=== PATIENT | female | born 2000 | race Caucasian/White ===

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

== ENCOUNTER → 2022-02-23 | Outpatient (REF) | payer BC ==
[2022-02-23 12:04] LABS: APPEARANCE, URINE MANUAL CLOUDY (CLEAR); COLOR, URINE MANUAL YELLOW (YELLOW)
[2022-02-23 12:15] LABS: BILIRUBIN, URINE MANUAL NEGATIVE (NEGATIVE); BLOOD URINE MANUAL POSITIVE (NEGATIVE); GLUCOSE, URINE (UA) MANUAL NEGATIVE (NEGATIVE); KETONE, URINE MANUAL NEGATIVE (NEGATIVE); LEUKOCYTE ESTERASE, URINE MAN POSITIVE (NEGATIVE); NITRITE, URINE MANUAL POSITIVE (NEGATIVE); PROTEIN, URINE MANUAL 1+ mg/dL (NEGATIVE); UROBILINOGEN, URINE MANUAL NORMAL (NORMAL)
[2022-02-23 12:47] LABS: BACTERIA, URINE LARGE AMOUNT; HYALINE CAST, URINE NONE SEEN /lpf (0-1); SQUAMOUS EPITHELIAL CELL URINE SMALL AMOUNT /hpf (SMALL AMT); WBC, URINE TNTC /hpf (0-3)
== END ==
LOC: M LAB REF 11:27
PROVIDERS: ATTEND Physician Assistant
DX: N39.0 Urinary tract infection, site not specified (principal)

== ENCOUNTER 2023-08-14 20:56 | Emergency (ER) | payer BC ==
[~2023-08-14] VITALS: Ht 167.6 cm; Wt 51.8 kg
[2023-08-15 00:06] VITALS: BP 110/78; TEMP 98.8; O2SAT 98
== END 2023-08-15 00:08 | disposition home or self-care (01) ==
LOC: M ED 20:56
DX: N93.9 Abnormal uterine and vaginal bleeding, unspecified (principal)

== ENCOUNTER → 2025-04-28 | Outpatient (RCR) ==
[~2025-04-28] MED LIST: HYDR-643 PO; ONDA-282 PO
== END ==
LOC: M EMPSKH 04-12 10:13
PROVIDERS: ATTEND Family Medicine
DX: Z20.828 Contact with and (suspected) exposure to other viral communicable diseases (principal)

== ENCOUNTER 2025-05-07 01:49 | Emergency (ER) | payer BC ==
[~2025-05-07] VITALS: Ht 160 cm; Wt 59.1 kg
[2025-05-07] MEDS: NS (Normal Saline) 0.9% 1,000 ML IV ONE (02:19)
[2025-05-07] MEDS: ONDANSETRON 4MG/2ML VIAL IV ONE (02:19)
[2025-05-07 02:46] LABS: BASO # 0.1 10^3/uL (0.0-0.2); BASO % 0.5 % (0.0-1.0); EOS # 0.0 10^3/uL (0.0-0.5); EOS % 0.4 % (0.0-3.0); LYMPH # 3.7 10^3/uL (1.5-5.0); LYMPH % 38.3 % (24.0-44.0); MONO # 0.4 10^3/uL (0.0-0.8); MONO % 4.5 % (2.0-8.0); NEUTROPHILS # 5.3 10^3/uL (1.5-8.5); NEUTROPHILS % 56.0 % (36.0-66.0); PLATELET COUNT, AUTOMATED 338 10^3/uL (150-450)
[2025-05-07 02:48] LABS: CALCIUM LEVEL 8.9 MG/DL (8.5-10.1); CARBON DIOXIDE LEVEL 23 MMOL/L (20-31); CHLORIDE LEVEL 108 MMOL/L (98-107); CREATININE FOR GFR 0.52 MG/DL (0.55-1.30); GLOMERULAR FILTRATION RATE > 90.0 (>60); HCG, SERUM QUALITATIVE NEGATIVE (NEGATIVE); MAGNESIUM LEVEL 2.0 MG/DL (1.8-2.4); POTASSIUM SERUM 3.9 MMOL/L (3.5-5.1); SODIUM LEVEL 144 MMOL/L (136-145)
[2025-05-07 03:47] LABS: AMPHETAMINES LEVEL URINE NEGATIVE (NEGATIVE); BARBITURATES URINE NEGATIVE (NEGATIVE); BENZODIAZEPINES URINE NEGATIVE (NEGATIVE); COCAINE METABOLITE URINE NEGATIVE (NEGATIVE); METHADONE URINE NEGATIVE (NEGATIVE); OPIATES URINE NEGATIVE (NEGATIVE); PHENCYCLIDINE URINE NEGATIVE (NEGATIVE)
[2025-05-07 03:51] LABS: CANNABINOIDS URINE POSITIVE (NEGATIVE)
[2025-05-07] MEDS: ACETAMINOPHEN *IV* 1,000 MG in IV 1 EA IV ONE (03:59)
[2025-05-07] MEDS: dexAMETHasone 4 MG/ML 1 ML VIAL IV ONE (03:59)
[2025-05-07] MEDS: MAG SULF 1GM/100ML (MAG RUN) 1 GM in IV 1 EA IV ONE (03:59)
[2025-05-07] MEDS: KETOROLAC 30 MG/ML 1 ML VIAL IV ONE (04:00)
[2025-05-07 05:16] VITALS: BP 111/67; TEMP 97.8; O2SAT 97
== END 2025-05-07 05:19 | disposition home or self-care (01) ==
LOC: M ED 01:49
DX: R51.9 Headache, unspecified (principal); R41.82 Altered mental status, unspecified; F41.9 Anxiety disorder, unspecified; F10.10 Alcohol abuse, uncomplicated; F12.10 Cannabis abuse, uncomplicated; Z79.899 Other long term (current) drug therapy
CPT/HCPCS: 70450; 80048; 80307; 83735; 84703; 85025; 96361; 96365; 96367; 96375; 99284; J0134; J1100; J1885; J2405; J2765; J3475